=== PATIENT | female | born 1940 | race Caucasian/White ===

== ENCOUNTER 2016-10-28 07:52 | Day surgery (SDC) | payer MEDICARE, BC ==
[2016-10-22 11:42] VITALS: BMI 31.1
[~2016-10-28 07:52] MED LIST: LACTATED RINGERS 1,000 ML IV SCH; LIDOCAINE 1% 20 ML VIAL (10MG/ML) FOR IV START INTRADERMA PRN
[2016-10-28] MEDS: PHENYLEPHRINE 10% OPHTH DROPS 5 ML BTL OP ONE ×2 (08:55→09:11)
[2016-10-28] MEDS: CYCLOPENTOLATE 1% OPHTH SOLN 2 ML BTL OP ONE ×3 (08:58→09:13)
[2016-10-28] MEDS: FLURBIPROFEN 0.03% OPHTH DROPS 2.5 ML BTL OP ONE ×3 (09:01→09:16)
[2016-10-28 09:30] VITALS: RESP 16; TEMP 97.4
[2016-10-28] MEDS ORDERED: PROPOFOL 10 MG/ML 20 ML VIAL IV ONE (09:41)
[2016-10-28] MEDS ORDERED: EPINEPHrine (PF) 0.5 ML in BALANCED SALT IRRIG SOLN COMB2 500 ML IRRIGATION ONE (09:45)
[2016-10-28] MEDS ORDERED: BALANCED SALT IRRIG SOLN COMB2 15 ML IRRIG.SOLN INTRAOCULA ONE (09:51)
[2016-10-28 09:52] LABS: INR 4.1 (<1.2); Prothrombin Time 40.2 sec (9.0-12.0)
[2016-10-28] MEDS ORDERED: TETRACAINE 0.5% OPHTH (PF) DROPS 4 ML BTL LEFT EYE ONE (09:52)
[2016-10-28] MEDS ORDERED: HYALURONATE SODIUM INTRAOCULAR 1 EACH SYRINGE (10MG/ML) INTRAOCULA ONE (09:52)
[2016-10-28] MEDS ORDERED: TIMOLOL 0.5% OPHTH SOLN (PF) 0.2 ML DROPERETTE LEFT EYE ONE (09:52)
[2016-10-28] MEDS ORDERED: NEOMYCIN-POLYMYXIN-DEXAMETH OINT 3.5 GM TUBE LEFT EYE ONE (09:52)
--- NOTE | 2016-10-28 10:05 | P.OP ---
Date of Procedure: 10/28/16 Preoperative Diagnosis: Postoperative Diagnosis: Procedure(s) Performed: PREOPERATIVE DIAGNOSIS: Cataract, left eye. POSTOPERATIVE DIAGNOSIS: Cataract, left eye. OPERATION: Phacoemulsification cataract, left eye. DESCRIPTION OF PROCEDURE: The patient was taken to the preoperative holding area. Intravenous Propofol was given so as to bring about adequate sedation. The following mixture was given for local anesthesia: 5 mL of 2% lidocaine, 5 mL of 0.75% Marcaine, and 1 mL of Wydase. Approximately 4 mL was injected in the retrobulbar space of the surgical eye. Additional 1 mL was then directed to the temporal area of the surgical eye. This was performed to allow adequate neurological block of the facial muscles. The patient was revived and then taken into the operative room. The patient was prepped and draped in the usual sterile manner for the operative eye. A lid speculum was put into position. The conjunctiva was resected back from the limbus in the 12 o'clock position. Bleeding was controlled with electrocautery. A #69 blade was then used and a half-thickness scleral incision approximately 1-mm posterior to the limbus was made on bare sclera. This was shelved in the clear cornea using a crescent knife. The steep axis of astigmatism was marked using a pre-inked corneal marking device. Next a 15-degree blade was used to make a stab incision at the 3 o'clock position at the corneolimbal interface. Keratome blade was then used and the superior wound was extended into the anterior chamber. Viscoelastic was injected into the anterior chamber and to maintain its form. Next, a cystotome was used and a continuous anterior capsulotomy was made without difficulty. Hydrodissection using a blunt cannula and BSS was performed. Phaco probe was then employed and a groove extending from 12 to 6 o' clock in the lens was created. A Marky wand was used through the stab incision so as to perform a divide and conquer technique. Next an irrigation aspiration probe was utilized and any residual cortex was removed from the eye. Again, viscoelastic was injected into the anterior chamber. An Melchor toric posterior chamber lens implant was placed in the cartridge and injected into the anterior chamber without difficulty. The Sinskey hook was utilized to spin the lens into position and this was again performed without any difficulty. The irrigation and aspiration probe was again employed and any residual viscoelastic was removed from the eye. Then BSS was injected into the limbal stab incision and the anterior chamber re-inflated. The conjunctiva was reapproximated using electrocautery. One drop of 0.25% Timoptic was placed over the corneal along with TobraDex ophthalmic ointment. Two sterile patches and a Killian eye shield were taped into position. The patient was transported to the recovery room in stable condition. Implants: Pathology: none sent Condition: stable Disposition: same day Indications for Procedure: Operative Findings: Description of Procedure:
[2016-10-28 10:28] VITALS: BP 136/70; PULSE 57
[2016-10-28] MEDS ORDERED: TIMOLOL 0.5% OPHTH SOLN (PF) 0.2 ML DROPERETTE OP ONE (23:00)
[2016-10-28] MEDS ORDERED: BUPIVACAINE (PF) 0.75% 5 ML, LIDOCAINE 4% (PF) 5 ML, HYALURONIDASE, HUMAN RECOMB 150 UNIT MISCELLANE ONE ×3 (23:00)
[2016-10-28] MEDS ORDERED: GENTAMICIN/PREDNISOL AC OPHTH OINT 3.5GM OPHTHALMIC ONE (23:00)
== END 2016-10-28 11:24 | disposition home or self-care (01) ==
LOC: OR 07:52
PROVIDERS: ATTEND Ophthalmology
DX: H26.9 Unspecified cataract (principal); I10 Essential (primary) hypertension; E07.9 Disorder of thyroid, unspecified; Z86.711 Personal history of pulmonary embolism; Z79.01 Long term (current) use of anticoagulants; Z79.891 Long term (current) use of opiate analgesic; Z79.899 Other long term (current) drug therapy
CPT/HCPCS: 66984; 85610; V2787; C1780; J2001; J3470; J0171; J2704

== ENCOUNTER 2016-12-23 07:30 | Day surgery (SDC) | payer MEDICARE, BC ==
[2016-12-22 08:55] VITALS: BMI 31.1
[2016-12-23] MEDS: KETOROLAC 0.5% OPHTH DROPS 3 ML BTL OP ONE ×3 (08:13→08:32)
[2016-12-23] MEDS: PHENYLEPHRINE 10% OPHTH DROPS 5 ML BTL OP ONE ×3 (08:16→08:35)
[2016-12-23] MEDS: CYCLOPENTOLATE 1% OPHTH SOLN 2 ML BTL OP ONE ×3 (08:19→08:38)
[2016-12-23 08:51] LABS: INR 3.8 (<1.2); Prothrombin Time 36.8 sec (9.0-12.0)
[2016-12-23] MEDS ORDERED: PROPOFOL 10 MG/ML 20 ML VIAL IV ONE (08:54)
[2016-12-23] MEDS ORDERED: EPINEPHrine (PF) 0.5 ML in BALANCED SALT IRRIG SOLN COMB2 500 ML IRRIGATION ONE (09:07)
[2016-12-23] MEDS ORDERED: BALANCED SALT IRRIG SOLN COMB2 15 ML IRRIG.SOLN IRRIGATION ONE (09:09)
[2016-12-23] MEDS ORDERED: HYALURONATE SODIUM INTRAOCULAR 1 EACH SYRINGE (10MG/ML) INTRAOCULA ONE (09:10)
--- NOTE | 2016-12-23 09:24 | P.OP ---
Date of Procedure: 12/23/16 Procedure(s) Performed: PREOPERATIVE DIAGNOSIS: Cataract, right eye. POSTOPERATIVE DIAGNOSIS: Cataract, right eye. OPERATION: Phacoemulsification cataract, right eye. DESCRIPTION OF PROCEDURE: The patient was taken to the preoperative holding area. Intravenous Propofol was given so as to bring about adequate sedation. The following mixture was given for local anesthesia: 5 mL of 2% lidocaine, 5 mL of 0.75% Marcaine, and 1 mL of Wydase. Approximately 4 mL was injected in the retrobulbar space of the surgical eye. Additional 1 mL was then directed to the temporal area of the surgical eye. This was performed to allow adequate neurological block of the facial muscles. The patient was revived and then taken into the operative room. The patient was prepped and draped in the usual sterile manner for the operative eye. A lid speculum was put into position. The conjunctiva was resected back from the limbus in the 12 o'clock position. Bleeding was controlled with electrocautery. A #69 blade was then used and a half-thickness scleral incision approximately 1-mm posterior to the limbus was made on bare sclera. This was shelved in the clear cornea using a crescent knife. Next a 15-degree blade was used to make a stab incision at the 3 o' clock position at the corneolimbal interface. Keratome blade was then used and the superior wound was extended into the anterior chamber. Viscoelastic was injected into the anterior chamber and to maintain its form. Next, a cystotome was used and a continuous anterior capsulotomy was made without difficulty. Hydrodissection using a blunt cannula and BSS was performed. Phaco probe was then employed and a groove extending from 12 to 6 o'clock in the lens was created. A Marky wand was used through the stab incision so as to perform a divide and conquer technique. Next an irrigation aspiration probe was utilized and any residual cortex was removed from the eye. Again, viscoelastic was injected into the anterior chamber. An Melchor posterior chamber lens implant was placed in the cartridge and injected into the anterior chamber without difficulty. The SinSlingrey hook was utilized to spin the lens into position and this was again performed without any difficulty. The irrigation and aspiration probe was again employed and any residual viscoelastic was removed from the eye. Then BSS was injected into the limbal stab incision and the anterior chamber re-inflated. The conjunctiva was reapproximated using electrocautery. One drop of 0.25% Timoptic was placed over the corneal along with TobraDex ophthalmic ointment. Two sterile patches and a Killian eye shield were taped into position. The patient was transported to the recovery room in stable condition. Pathology: none sent Condition: stable Disposition: same day
[2016-12-23 09:29] VITALS: RESP 16
[2016-12-23 09:40] VITALS: BP 138/63; PULSE 58
[2016-12-23] MEDS ORDERED: BUPIVACAINE (PF) 0.75% 5 ML, LIDOCAINE 4% (PF) 5 ML, HYALURONIDASE, HUMAN RECOMB 150 UNIT MISCELLANE ONE ×3 (23:00)
[2016-12-23] MEDS ORDERED: GENTAMICIN/PREDNISOL AC OPHTH OINT 3.5GM OPHTHALMIC ONE (23:00)
[2016-12-23] MEDS ORDERED: TIMOLOL 0.5% OPHTH SOLN (PF) 0.2 ML DROPERETTE OP ONE (23:00)
== END 2016-12-23 09:58 | disposition home or self-care (01) ==
LOC: OR 07:30
PROVIDERS: ATTEND Ophthalmology
DX: H26.9 Unspecified cataract (principal); I10 Essential (primary) hypertension; Z96.649 Presence of unspecified artificial hip joint; Z96.659 Presence of unspecified artificial knee joint; E78.5 Hyperlipidemia, unspecified; E07.9 Disorder of thyroid, unspecified; K21.9 Gastro-esophageal reflux disease without esophagitis; Z86.718 Personal history of other venous thrombosis and embolism; Z79.01 Long term (current) use of anticoagulants; Z79.899 Other long term (current) drug therapy; Z86.711 Personal history of pulmonary embolism
CPT/HCPCS: 85610; 66984; V2787; C1780; J2001; J3470; J0171; J2704

== ENCOUNTER → 2023-04-27 | Day surgery (SDC) | payer MEDICARE, BC ==
[2023-04-24 08:53] VITALS: BMI 26.5
== END ==
LOC: ORWHC2ENDO 06:50
PROVIDERS: ATTEND Internal Medicine Gastroenterology
DX: D50.9 Iron deficiency anemia, unspecified (principal)
CPT/HCPCS: 91110

== ENCOUNTER → 2023-11-13 | Outpatient (CLI) | payer MEDICARE, BC ==
--- NOTE | 2023-12-03 14:11 | MR ---
Site ID synapse default Kay Madrigal G ID [id number] Age/Gender: 83Y, F Order # N/A Procedure MRI BRAIN WO CONTRAST Date 11/13/2023 9:44:22 AM EXAMINATION TYPE: MR brain wo con DATE OF EXAM: 11/27/2023 7:36 PM COMPARISON: None. CLINICAL INDICATION: Female, 83 year old with history of memory loss. TECHNIQUE: Multi planar, multi sequence imaging was performed through the brain. No gadolinium was gi kelly. FINDINGS: The rodgers-white junctions, ventricular system, and cisterns appear unremarkable. Patchy and confluent bilateral subcortical and periventricular white matter change. Additional confluent white matter shawn nge within the suze. These lesions are relatively symmetric. Midline structures show no abnormality. Diffusion-weighted imaging shows no evidence of restricted diffusion. The susceptibility weighted prema ges demonstrate a single focus of susceptibility artifact within the posterior left parietal lobe lik yessenia representing remote hemorrhage. Age-appropriate cerebral volume loss. The bone marrow signal is within normal limits. Advanced degenerative changes of the visualized cervi shara spine with kyphotic angle. Narrowed appearance of the foramen of magnum measuring up to 8 mm (ser ies 201, image 14). The paranasal sinuses are remarkable. Bilateral aphakia. IMPRESSION: 1. No evidence of intracranial mass or acute/subacute infarct. 2. Marked nonspecific white matter changes involving the bilateral frontal and parietal lobes and the suze. Etiologies include small vessel ischemic disease versus demyelination process versus vasculiti s versus leukodystrophy versus other. 3. Narrowing of the foramen magnum due to kyphosis of the upper cervical spine.
== END | disposition home or self-care (01) ==
LOC: RADMRIMAIN 10:15
PROVIDERS: ATTEND Psychiatry & Neurology Neurology
DX: R41.3 Other amnesia (principal); M40.202 Unspecified kyphosis, cervical region
CPT/HCPCS: 70551